=== PATIENT | male | born 1955 | race Caucasian/White ===

== ENCOUNTER → 2017-02-27 | Outpatient (CLI) | payer OTHER ==
[~2017-02-27] MED LIST: COZAAR 50 MG TA50 M2 PO; METOPROLOL SUCC50 MG PO; TRICOR145 MG PO
--- NOTE | ~2017-02-27 | 2DMMODE ---
[facility] [place] [address] 2 D/M-MODE ECHOCARDIOGRAM Name: NAOMY GUILLEN JR Room #: REG [facility] [id number] Admission: 02/27/17 Attend Phys: Abran López MD Discharge: Date of : 51 Date of Service: 02/27/17 1532 Report #: [id number] THIS REPORT FOR: //name// APPROVED REPORT Study performed: 02/27/2017 14:20:36 EXAM: Comprehensive 2D, Doppler, and color-flow Echocardiogram Patient Location: Out-Patient Status: routine BSA: 2.35 HR: 60 bpm BP: 129/81 mmHg Rhythm: NSR/frequent PVC's Other Information Study Quality: Adequate/lung artifcact Indications Nonischemic cardiomyopathy. 2D Dimensions RVDd: 31.41 mm LVEF(%): 50.04 (>50%) IVSd: 10.24 (7-11mm) LVOT Diam: 22.29 (18-24mm) LVDd: 52.08 mm PWd: 9.59 (7-11mm) Ascending Ao: 39.96 (22-36mm) LVDs: 38.76 (25-40mm) Aortic Root: 40.58 mm Rodriguez's LVEF: 50.04 % Volumes Left Atrial Volume (Systole) Single Plane 4CH: 64.65 mL Single Plane 2CH: 65.03 mL LA ESV Index: 30.00 mL/m2 Aortic Valve AoV Peak Ivan.: 1.12 m/s AO Peak Gr.: 5.05 mmHg LVOT Max P.42 mmHg LVOT Max V: 0.78 m/s ANTHONY Vmax: 2.70 cm2 Mitral Valve E/A Ratio: 0.7 MV Decel. Time: 368.77 ms [facility] [place] [address] 2 D/M-MODE ECHOCARDIOGRAM Name: NAOMY GUILLEN Room #: REG [facility].#: [id number] Admission: 02/27/17 Attend Phys: Abran López MD Discharge: Date of : 51 Date of Service: 02/27/17 1532 Report #: [id number] MV E Max Ivan.: 0.48 m/s MV A Ivan.: 0.70 m/s MV PHT: 106.94 ms IVRT: 115.34 ms Pulmonary Valve PV Peak Ivan.: 0.95 m/s PV Peak Gr.: 3.62 mmHg Pulmonary Vein P Vein S: 0.70 m/s P Vein A: 0.31 m/s P Vein D: 0.35 m/s P Vein A Dur.: 124.6 msec P Vein S/D Ratio: 2.00 Tricuspid Valve RAP Estimate: 5.00 mmHg Left Ventricle The left ventricle is normal size. There is normal left ventricular wall thickness. Left ventricular systolic function is mildly decreased. LVEF is 45-50%. Mild diastolic dysfunction is present (impaired relaxation pattern). Right Ventricle The right ventricle is normal size. The right ventricular systolic function is normal. Atria The left atrium size is normal. The right atrium size is normal. Aortic Valve Aortic valve leaflets are mildly thickened. Trace aortic regurgitation. There is no aortic valvular stenosis. Mitral Valve The mitral valve is normal in structure. Mild to moderate mitral regurgitation. Tricuspid Valve The tricuspid valve is normal in structure. There is no tricuspid valve regurgitation noted. Unable to assess PA pressure. Pulmonic Valve The pulmonary valve is normal in structure. Trace pulmonic regurgitation. [facility] [address] [place] [address] 2 D/M-MODE ECHOCARDIOGRAM Name: NAOMY GUILLEN JR Room #: REG [facility]#: [id number] Admission: 02/27/17 Attend Phys: Abran López MD Discharge: Date of : 51 Date of Service: 02/27/17 1532 Report #: [id number] Great Vessels Aortic root is dilated at 4.1cm. Ascending aorta is dilated at 4.0cm. IVC is normal in size and collapses >50% with inspiration. Pericardium There is no pericardial effusion. <Conclusion> The left ventricle is normal size. Left ventricular systolic function is mildly decreased. Mild diastolic dysfunction is present (impaired relaxation pattern). The right ventricle is normal size. The left atrium size is normal. Trace aortic regurgitation. Mild to moderate mitral regurgitation. There is no pericardial effusion. <ELECTRONICALLY SIGNED> By: Abran López MD 02/27/17 [id number] Abran López MD /INF
== END ==
LOC: CV 14:09
DX: I42.8 Other cardiomyopathies (principal)

== ENCOUNTER → 2019-06-25 | Outpatient (CLI) | payer OTHER | LOC: SJCVCIMAG 08:45 | DX: I35.8 Other nonrheumatic aortic valve disorders (principal); I42.9 Cardiomyopathy, unspecified; R06.09 Other forms of dyspnea; R00.2 Palpitations ==

== ENCOUNTER → 2019-12-30 | Outpatient (CLI) | payer OTHER | LOC: CAT 13:06 | PROVIDERS: ATTEND Internal Medicine Cardiovascular Disease | DX: Z13.6 Encounter for screening for cardiovascular disorders (principal); I25.10 Atherosclerotic heart disease of native coronary artery without angina pectoris; E78.00 Pure hypercholesterolemia, unspecified ==

== ENCOUNTER → 2020-06-23 | Outpatient (CLI) | payer OTHER | LOC: SJCVCIMAG 10:03 | PROVIDERS: ATTEND Internal Medicine Cardiovascular Disease | DX: I34.0 Nonrheumatic mitral (valve) insufficiency (principal); I51.7 Cardiomegaly; I42.9 Cardiomyopathy, unspecified ==

== ENCOUNTER → 2021-07-03 | Outpatient (CLI) | payer OTHER | LOC: SJCVC 11:34 | PROVIDERS: ATTEND Internal Medicine Cardiovascular Disease | DX: R94.31 Abnormal electrocardiogram [ECG] [EKG] (principal); I42.8 Other cardiomyopathies; I10 Essential (primary) hypertension; E78.5 Hyperlipidemia, unspecified; R60.9 Edema, unspecified; Z88.8 Allergy status to other drugs, medicaments and biological substances; Z79.899 Other long term (current) drug therapy; Z72.89 Other problems related to lifestyle ==